=== PATIENT | male | born 1960 | race Caucasian/White ===

== ENCOUNTER 2017-01-22 18:16 | Emergency (ER) | payer BC ==
[2017-01-22 19:28] LABS: BASO % 0.2 % (0-2); EOS % 0.7 % (0-7); EOSINOPHIL ABSOLUTE COUNT 0.1 tho/cmm (0.0-0.7); HCT-HEMATOCRIT 39.3 % (36.0-53.5); HGB-HEMOGLOBIN 12.9 gm/dl (13.5-17.0); IMMATURE GRANULOCYTES ABSOLUTE 0.02 tho/cmm (0-0.03); IMMATURE GRANULOCYTES PERCENT 0.2 % (0-0.3); LYMPH % 9.5 % (20-45); LYMPH ABSOLUTE COUNT 1.2 tho/cmm (0.8-4.5); MCH (MEAN CORPUSCULAR HGB) 26.7 pg (28.0-32.0); MCHC MEAN CORPUSCULAR HGB CONC 32.8 % (32.0-36.0); MCV (MEAN CELL VOLUME) 81.2 fl (82.0-96.0); MEAN PLATELET VOLUME 8.1 cmc (9.4-12.4); MONO % 7.9 % (0-12); NEUTROPHIL ABSOLUTE COUNT 9.9 tho/cmm (1.6-8.0); NEUTROPHIL-AUTOMATED 9.9 tho/cmm (1.6-8.0); NEUTROPHILS % 81.5 % (40-80); PLATELET COUNT 242 tho/cmm (150-450); RED BLOOD COUNT 4.84 mil/cmm (4.40-5.70); RED CELL DISTRIBUTION WIDTH 17.4 % (12.4-16.4); WHITE BLOOD COUNT 12.1 tho/cmm (4.0-10.0)
[2017-01-22 19:36] LABS: URINE BILIRUBIN NEGATIVE (NEG); URINE BLOOD MODERATE (NEG); URINE GLUCOSE (UA) NEGATIVE (NEG); URINE KETONE NEGATIVE (NEG); URINE LEUKOCYTE ESTERASE POSITIVE (NEG); URINE NITRITE NEGATIVE (NEG); URINE PROTEIN SMALL (NEG)
[2017-01-22 19:37] LABS: URINE APPEARANCE CLEAR; URINE COLOR YELLOW
[2017-01-22 19:47] LABS: URINE BACTERIA 1+; URINE EPITHELIAL CELLS 0-1 /[HPF] (0-10); URINE RBC 0 /[HPF] (0-5); URINE WBC 20-25 /[HPF] (0-5)
[2017-01-22] MEDS ORDERED: NEURONTIN300 M1 PO (19:50)
[2017-01-22] MEDS ORDERED: ULTRAM50 M1 PO (19:50)
[2017-01-22] MEDS ORDERED: ELIQUIS2.5 M1 PO (19:51)
[2017-01-22] MEDS ORDERED: FOLIC ACID1 M1 PO (19:51)
[2017-01-22] MEDS ORDERED: PREVACID15 M2 PO (19:51)
[2017-01-22] MEDS ORDERED: LOPID600 M1 PO (19:51)
[2017-01-22] MEDS ORDERED: VITAMIN C500 M3 PO (19:52)
[2017-01-22] MEDS ORDERED: SENNA LAXATIVE PO (19:52)
[2017-01-22] MEDS ORDERED: ORAZINC220 M1 PO (19:52)
[2017-01-22] MEDS ORDERED: CALCIUM CARBON600 M2 PO (19:52)
[2017-01-22] MEDS ORDERED: LIPITOR20 M1 PO (19:53)
[2017-01-22] MEDS ORDERED: MULTIVITAMINS1 EAC6 PO (19:53)
[2017-01-22 19:56] LABS: ALB/GLOB RATIO 0.8 (0.8-2.0); ALBUMIN 3.4 g/dl (3.5-5.0); ALKALINE PHOSPHATASE 123 U/L (33-138); ALT/SGPT 28 U/L (12-78); AMYLASE 24 U/L (20-90); BILIRUBIN,TOTAL 0.3 mg/dl (0.0-1.5); BLOOD UREA NITROGEN 23 mg/dl (6-24); CALCIUM 8.9 mg/dl (8.5-10.5); CARBON DIOXIDE-VENOUS 24 mmol/L (22-32); CHLORIDE 104 mmol/l (96-110); CREATININE 0.76 mg/dl (0.60-1.30); GLUCOSE 96 mg/dL (70-110); LIPASE 104 U/L (73-393); SODIUM 138 mmol/L (135-145); eGFR VALUE FOR BLACK >90 mL/Min
[2017-01-22 20:19] LABS: ANION GAP 14 mmol/L (0-20); POTASSIUM 4.1 mmol/L (3.7-5.1)
[2017-01-22 20:20] LABS: AST/SGOT 20 U/L (10-40)
[2017-01-22] MEDS ORDERED: BACTRIM DS TAB1 EAC2 PO (20:36)
== END 2017-01-22 20:46 ==
LOC: EDMED 18:16
PROVIDERS: Physician Assistant
DX: N41.9 Inflammatory disease of prostate, unspecified (principal); B96.89 Other specified bacterial agents as the cause of diseases classified elsewhere; Z90.49 Acquired absence of other specified parts of digestive tract